=== PATIENT | female | born 1955 | race Caucasian/White ===

== ENCOUNTER → 2019-07-19 | Day surgery (SDC) | payer OTHER ==
[~2019-07-19] VITALS: Ht 165.1 cm; Wt 78.0 kg
[~2019-07-19] MED LIST: AMBIEN 10 MG TA10 MG PO; CYMBALTA60 MG PO; GAS-X180 MG PO; HYDROCHLOROTH12.5 M2 PO; IBUPROFEN 800800 M1 PO; LYRICA150 MG PO; METFORMIN HCL1000 M1 PO; MULTIVITAMIN1 EACH PO; NEXIUM 40 MG CA40 M1 PO; RESTASIS1 EACH OPHTHALMIC; TRAMADOL 50 MG50 MG PO; VESICARE 5 MG TA5 M1 PO; VITAMIN C500 M1 PO; VITAMIN D31250 MC1 PO; VITAMIN E400 UNI4 PO; ZOCOR 10 MG TAB10 M1 PO
--- NOTE | ~2019-07-19 | O ---
[facility] [place] [address] [address] OPERATIVE REPORT Name: MARIANA DICKEY Room #: REG [facility] M..#: [id number] Admission: 07/19/19 Attend Phys: Matt Allison MD Discharge: Date of : 53 Report #: [id number] THIS REPORT FOR: cc: Maxine Palacios MD,Maxine Allison,Matt Sarah MD ~ CC: Maxine Allison DATE OF SERVICE: 07/19/2019 SURGEON: Matt Allison MD PREOPERATIVE DIAGNOSIS: Bilateral nasal lacrimal duct obstruction. POSTOPERATIVE DIAGNOSIS: Bilateral nasal lacrimal duct obstruction. OPERATION PERFORMED: Bilateral endoscopic dacryoplasty with silicone intubation. ANESTHESIA: General. COMPLICATIONS: None. INDICATIONS FOR SURGERY: This patient has acquired bilateral nasal lacrimal duct stenosis with chronic tearing and discharge, both eyes. The current procedures are undertaken in order to improve the patient's level of lacrimal outflow and visual clarity. Informed consent was obtained to include but not limited to the potential risks for damage to the eye, loss of vision, bleeding, infection, failure to improve the problem and need for further surgery. DESCRIPTION OF OPERATION: The patient was taken to the operating room, where general anesthesia was administered. The medial canthi were anesthetized with 2% Xylocaine with epinephrine mixed with equal parts of 0.75% Marcaine with Wydase. The lateral molina of the nose were then bilaterally injected with the same anesthetic mixture. The nose was packed with Afrin-soaked cottonoids. The patient was then prepped and draped in the usual sterile fashion. A moist compress was placed on the left eye while attention was turned to the right side. The superior and inferior puncta were then atraumatically dilated with a punctum [facility] [address] [place] [address] OPERATIVE REPORT Name: JJ MARIANA TREVINO Room #: REG [facility]..#: [id number] Admission: 07/19/19 Attend Phys: Matt Allison MD Discharge: Date of : 53 Report #: [id number] dilator. A size 0 lacrimal probe was then passed through the superior canalicular system and through the stenosed nasal lacrimal duct. The nasal packing was removed and the endoscope was brought into the field. The inferior turbinate was gently infractured with a Hayward periosteal elevator to allow visualization of the inferior meatus in the area of the opening of the valve of Hasner in the nose. The probe was found and confirmed to be in the proper location. It was removed and subsequently replaced with a size 1 and a size 2 Watkins probe, which also had their passage confirmed endoscopically to be in the proper location. A 3 by 15 LacriCatheter was lubricated with a small quantity of ophthalmic antibiotic ointment. The LacriCatheter was then passed through the superior canalicular system and the stenosed nasal lacrimal duct. The LacriCatheter was confirmed to be in the proper location endoscopically intranasally in the inferior meatus. The LacriCatheter was inflated to 9 atmospheres for 90 seconds and deflated. The catheter was then inflated to 9 atmospheres for 60 seconds. The catheter was then withdrawn to the proximal black ring. It was then inflated to 9 atmospheres for 90 seconds. The balloon was then deflated and reinflated to 9 atmospheres for 60 seconds. The balloon was the aspirated and withdrawn to the distal black ring. It was then inflated to 9 atmospheres for 90 seconds. The balloon was deflated and reinflated to 9 atmospheres for 60 seconds. The balloon was then deflated and vigorously aspirated as it was withdrawn through the superior canalicular system. A Melgar tube was then passed through the superior canalicular system and out the dilated duct. The Melgar tube was secured under the inferior turbinate in the inferior meatus with a Melgar hook and retrieved endoscopically. The Melgar tube was then passed through the inferior canalicular system in a similar fashion and was retrieved endoscopically in the nose atraumatically. The Melgar tube was then secured to itself with 3 square throws and then to the lateral wall of the nose with a 5-0 Prolene suture. Attention was then turned to the other side, where the same procedure was performed. Antibiotic steroid drops were then placed in both eyes. A small quantity of ophthalmic antibiotic ointment was placed on the Melgar tube. The patient was then transported to the recovery area with no anesthetic or operative complications being noted. By: [id number] Matt Allison MD /nt
[2019-07-19 09:30] VITALS: BP 147/82
== END | disposition home or self-care (01) ==
LOC: OR 07:42
DX: H04.553 Acquired stenosis of bilateral nasolacrimal duct (principal); E11.9 Type 2 diabetes mellitus without complications; E78.5 Hyperlipidemia, unspecified; F32.9 Major depressive disorder, single episode, unspecified; K21.9 Gastro-esophageal reflux disease without esophagitis; Z98.890 Other specified postprocedural states; Z79.899 Other long term (current) drug therapy; Z85.828 Personal history of other malignant neoplasm of skin; Z96.652 Presence of left artificial knee joint; Z88.8 Allergy status to other drugs, medicaments and biological substances
CPT/HCPCS: 50010; 50101; 50261; 50398; 51777; 56528; 62110; 62900; 64037; 70005